=== PATIENT | female | born 1975 | race Caucasian/White ===

== ENCOUNTER 2016-12-24 23:42 | Emergency (ER) | payer OTHER | END 2016-12-25 04:53 | disposition home or self-care (01) | LOC: ER 23:42 | DX: R10.13 Epigastric pain (principal); F17.210 Nicotine dependence, cigarettes, uncomplicated; Z88.2 Allergy status to sulfonamides | CPT/HCPCS: 36415; 96374; 96375; Q9963; Q9967 ==